=== PATIENT | male | born 1960 | race Caucasian/White ===

== ENCOUNTER 2016-12-01 08:12 | Emergency (ER) | payer BC ==
[2016-12-01 08:35] VITALS: BP 139/89
--- NOTE | 2016-12-01 08:51 | UC ---
Throat Pain/Nasal Cordell HPI - HPI Summary HPI Summary: left side jaw pain , + recent cold sx with nasal congestion, cough, no fever, no chills. no chest pain , no palpitations , hx of Afib - History of Current Complaint Chief Complaint: UCGeneralIllness Stated Complaint: JAW PAIN Time Seen by Provider: 12/01/16 08:26 Hx Obtained From: Patient Onset/Duration: Gradual Onset, Lasting Days - 7, Still Present Severity: Moderate Cough: Nonproductive Associated Signs & Symptoms: Positive: Nasal Discharge. Negative: Dysphagia, FB Sensation, Drooling, Wheezing, Hoarseness, Sinus Discomfort, Fever, Vomiting , Rash - Allergies/Home Medications Allergies/Adverse Reactions: Allergies Allergy/AdvReac Type Severity Reaction Status Date / Time seasonal Allergy Congestion Uncoded 12/01/16 08:35 Home Medications: Home Medications Furosemide TAB* [Lasix TAB*] 40 mg PO DAILY 12/01/16 [History Confirmed 12/01/16 ] Lisinopril [Zestril 10 MG-] 10 mg PO DAILY 12/01/16 [History Confirmed 12/01/16] Magnesium Oxide TAB* [MagOx 400 TAB*] 400 mg PO BID 12/01/16 [History Confirmed 12/01/16] Multivitamins/Minerals TAB* [Thera M Plus TAB*] 1 tab PO DAILY 12/01/16 [ History Confirmed 12/01/16] Potassium Chlor TAB* [Klor Con ER TAB*] 20 meq PO DAILY 12/01/16 [History Confirmed 12/01/16] Sotalol HCl 120 mg PO BID 12/01/16 [History Confirmed 12/01/16] Verapamil HCl [Calan Sr] 240 mg PO QAM 12/01/16 [History Confirmed 12/01/16] Warfarin TAB(*) [Coumadin TAB(*)] 10 mg PO SEE INSTRUCTIONS 12/01/16 [History Confirmed 12/01/16] PMH/Surg Hx/FS Hx/Imm Hx Cardiovascular History Of: Reports: Cardiac Disorders - afib - Surgical History Surgical History: Yes Surgery Procedure, Year, and Place: Right shoulder with cap, right ankle fusion - Family History Known Family History: Positive: Cardiac Disease, Hypertension - Social History Alcohol Use: Weekly Alcohol Amount: 3-4 Substance Use Type: None Smoking Status (MU): Never Smoked Tobacco Review of Systems Constitutional: Negative Skin: Negative Eyes: Negative ENT: Nasal Discharge Respiratory: Cough Cardiovascular: Negative Gastrointestinal: Negative Genitourinary: Negative All Other Systems Reviewed And Are Negative: Yes Physical Exam Triage Information Reviewed: Yes Appearance: Well-Appearing, No Pain Distress, Well-Nourished Vital Signs: Initial Vital Signs Temp 98.3 F 12/01/16 08:18 Pulse 76 12/01/16 08:18 Resp 18 12/01/16 08:18 BP 139/89 12/01/16 08:18 Pulse Ox 97 12/01/16 08:18 Vital Signs Reviewed: Yes Eyes: Positive: Conjunctiva Clear ENT: Positive: Normal ENT inspection, Hearing grossly normal, Pharynx normal, TMs normal, Other: - no jaw tenderness, no swelling , good ROM , no TMJ tenderness. Negative: Nasal congestion, Nasal drainage, TM bulging, TM dull, TM red Dental Exam: Normal Dental: Negative: Percussion Tenderness @, Gross Decay/Caries @, Dental Fracture @, Abscess @, Cellulitis @, Cervical Lymphadenopathy Neck exam: Normal Neck: Positive: Supple, Nontender, No Lymphadenopathy Respiratory: Positive: Chest non-tender, Lungs clear, Normal breath sounds Cardiovascular: Positive: RRR, No Murmur, Pulses Normal Throat Pain/Nasal Course/Dx - Differential Dx/Diagnosis Provider Diagnoses: jaw pain. sinusitis Discharge - Discharge Plan Condition: Stable Disposition: HOME Prescriptions: Amoxicillin/Clavulanate TAB* [Augmentin TAB 875*] 875 mg PO BID #20 tab Patient Education Materials: Sinusitis (ED) Additional Instructions: left side jaw pain , recent cold sx, ? sinusitis will start Augmentin 2x per day for 10 days follow up with your pcp in one week if not better follow up with your dentist as well
== END 2016-12-01 09:01 | disposition home or self-care (01) ==
LOC: UCCORT 08:12
DX: J32.9 Chronic sinusitis, unspecified (principal); R68.84 Jaw pain; R05 Cough; I48.91 Unspecified atrial fibrillation; Z79.01 Long term (current) use of anticoagulants; K02.9 Dental caries, unspecified; Z98.1 Arthrodesis status
CPT/HCPCS: 93005; 99202; G0463